=== PATIENT | male | born 1950 | race Caucasian/White ===

== ENCOUNTER 2017-01-18 04:19 | Inpatient (IN) | payer MEDICARE, OTHER ==
[~2017-01-18] VITALS: Ht 170.2 cm; Wt 84.0 kg
[~2017-01-18 04:19] MED LIST: ASPI81TA3 PO; ATOR80TA75 PO; CARV6.2579 PO; CLOP75TA27 PO; LANT3I SC; OLME20TA20 PO
[2017-01-18] MEDS ORDERED: morphine 4 MG/ML VIAL IV STA (04:29)
[2017-01-18] MEDS ORDERED: ONDANSETRON 4 MG INJ IV STA (04:29)
--- NOTE | 2017-01-18 04:29 | ERD ---
ER Documentation Chief Complaint Chief Complaint RUQ AP x 4 hours, no vomiting, some constipation, +belching HPI The patient is a 66-year-old male, presenting to the ER because of abdominal pain for the last 4 hours, has similar symptoms previously, denies fever, chills , vomiting, dysuria, diarrhea. There is no aggravating or relieving factor, denies diarrhea, constipation Past medical history: CAD, chronic kidney disease Surgical history: Stent PCI, bladder surgery due to cancer ROS All systems reviewed and are negative except as per history of present illness. Medications Home Meds Active Scripts Levofloxacin* (Levaquin*) 500 Mg Tablet, 500 MG PO DAILY for 7 Days, TAB Prov:PAULETTE ABDI MD 01/18/17 Hydrocodone/Acetaminophen ([place] 5-325 Tablet) 1 Each Tablet, 1 TAB PO Q6H Y for PAIN, #7 TAB Prov:PAULETTE ABDI MD 01/18/17 Levofloxacin* (Levaquin*) 750 Mg Tablet, 750 MG PO DAILY for 7 Days, TAB Prov:PAULETTE ABDI MD 01/18/17 Carvedilol* (Carvedilol*) 6.25 Mg Tablet, 6.25 MG PO BID for 30 Days, TAB 2 Refills Prov:NEYMAR CARNEY. 08/19/15 Atorvastatin* (Atorvastatin*) 80 Mg Tablet, 80 MG PO HS for 30 Days, TAB 2 Refills Prov:NEYMAR CARNEY. 08/19/15 Aspirin (Aspirin) 81 Mg Chew, 81 MG PO DAILY for 30 Days, TAB 2 Refills Prov:NEYMAR CARNEY 08/19/15 Insulin Glargine* (Lantus*) 100 Unit/Ml Soln, 15 UNIT SC HS for 2 Days use for the next 2 days till you can restart your home metformin Prov:NEYMAR CARNEY 08/19/15 Clopidogrel Bisulfate (Clopidogrel) 75 Mg Tablet, 75 MG PO DAILY for 30 Days, TAB 2 Refills Prov:NEYMAR CARNEY 08/19/15 Reported Medications Olmesartan Medoxomil (Benicar) 20 Mg Tablet, 20 MG PO DAILY, #30 TAB 08/17/15 Allergies Allergies: Coded Allergies: No Known Allergy (Unverified , 08/17/15) PMhx/Soc History of Surgery: Yes Anesthesia Reaction: No Hx Neurological Disorder: No Hx Respiratory Disorders: No Hx Cardiac Disorders: No Hx Psychiatric Problems: No Hx Miscellaneous Medical Probl: Yes Hx Alcohol Use: No Hx Substance Use: No Hx Tobacco Use: Yes Physical Exam Vitals Vital Signs Date Time Temp Pulse Resp B/P Pulse Ox O2 Delivery O2 Flow Rate FiO2 01/18/17 05:35 77 18 160/93 95 01/18/17 04:34 73 18 179/91 98 Room Air 01/18/17 04:25 98.0 76 20 169/85 99 Physical Exam Const: No acute distress. Head: Atraumatic. Eyes: Normal Conjunctiva. ENT: Normal External Ears, Nose and Mouth. Neck: Full range of motion. No meningismus. Resp: Clear to auscultation bilaterally. Cardio: Regular rate and rhythm. Abd: Soft, non distended, normal bowel sounds, neck and diffuse abdominal tenderness, more tenderness of the right upper quadrant, no rigidity, rebound, CVA tenderness Skin: No petechiae or rashes. Back: No midline or flank tenderness. Ext: No cyanosis, or edema. Neur: Awake and alert. No focal deficit Psych: Normal Mood and Affect. Result Diagram: 01/18/17 0515 01/18/17 0515 Results 24 hrs Laboratory Tests Test 01/18/17 05:15 01/18/17 05:28 White Blood Count 9.810^3/ul Red Blood Count 5.1510^6/ul Hemoglobin 14.8g/dl Hematocrit 43.3% Mean Corpuscular Volume 84.1fl Mean Corpuscular Hemoglobin 28.7pg Mean Corpuscular Hemoglobin Concent 34.2g/dl Red Cell Distribution Width 13.6% Platelet Count 07712^3/UL Mean Platelet Volume 10.7fl Neutrophils % 54.2% Lymphocytes % 33.6% Monocytes % 9.9% Eosinophils % 1.2% Basophils % 0.7% Nucleated Red Blood Cells % 0.0/100WBC Neutrophils # 5.310^3/ul Lymphocytes # 3.310^3/ul Monocytes # 1.010^3/ul Eosinophils # 0.110^3/ul Basophils # 0.110^3/ul Nucleated Red Blood Cells # 0.010^3/ul Sodium Level 141mmol/L Potassium Level 4.0mmol/L Chloride Level 105mmol/L Carbon Dioxide Level 23mmol/L Anion Gap 17 Blood Urea Nitrogen 30mg/dl Creatinine 1.42mg/dl Glucose Level 195mg/dl Calcium Level 10.0mg/dl Total Bilirubin 0.5mg/dl Direct Bilirubin 0.00mg/dl Indirect Bilirubin 0.5mg/dl Aspartate Amino Transf (AST/SGOT) 20IU/L Alanine Aminotransferase (ALT/SGPT) 37IU/L Alkaline Phosphatase 56IU/L Total Protein 8.4g/dl Albumin 4.6g/dl Globulin 3.80g/dl Albumin/Globulin Ratio 1.21 Lipase 243U/L Bedside Urine pH (LAB) 7.0 Bedside Urine Protein (LAB) 2+ Bedside Urine Glucose (UA) Negative Bedside Urine Ketones (LAB) Negative Bedside Urine Blood 1+ Bedside Urine Nitrite (LAB) Positive Bedside Urine Leukocyte Esterase (L 1+ Current Medications Medications (Trade) Dose Ordered Sig/Jules Route PRN Reason Start Time Stop Time Status Last Admin Dose Admin Morphine Sulfate (morphine) 4 mg ONCE STAT IV 01/18/17 04:29 01/18/17 04:31 DC 01/18/17 05:13 Ondansetron HCl (Zofran Inj) 4 mg ONCE STAT IV 01/18/17 04:29 01/18/17 04:31 DC 01/18/17 05:13 Levofloxacin 750 mg 750 mg ONCE ONCE PO 01/18/17 06:30 01/18/17 06:30 DC 01/18/17 06:18 Sodium Chloride 500 ml @ 500 mls/hr Q1H ONCE IV 01/18/17 06:30 01/18/17 07:29 01/18/17 06:26 Piperacillin Sod/ Tazobactam Sod (Zosyn 2.25gm/ 50ml (Pmx)) 50 ml @ 100 mls/hr ONCE ONCE IVPB 01/18/17 06:30 01/18/17 06:59 Procedures/[place] [id number] Radiology Main Line: [phone] DIAGNOSTIC IMAGING REPORT Patient: JOHANN NUNO : 1950 Age: 66 Sex: M MR #: [id number] DOS: 01/18/17 0429 Ordering MD: PAULETTE ABDI MD Location: E/R Room/Bed: PROCEDURE: Abdominal ultrasound CLINICAL INDICATION: Abdominal pain. COMPARISON: CT abdomen and pelvis 01/18/2017. TECHNIQUE: Multiple transverse and longitudinal nam-scale images of the abdomen were obtained, supplemented with color, power, and spectral Doppler imaging when appropriate. FINDINGS: Liver Length: 19.9 cm. Parenchyma: Heterogeneous. No suspicious mass or cyst. Portal vein: Patent with normal hepatopetal flow. Biliary tree Gallbladder: Distended containing a 1.6 gallstone located in the neck . The gallbladder wall is thickened measuring 5.8 mm with pericholecystic fluid. Positive King's sign was elicited by the supervisor detasseling crew. Intrahepatic bile duct: No intrahepatic biliary ductal dilatation. Common bile duct: 5.5 mm. Pancreas: 1.5 x 0.9 cm round hypoechoic area near the pancreatic body not confirmed on CT examination of reference which was performed without intravenous contrast. Right kidney Length: 11.1 cm. Parenchyma: No evidence of obstructive uropathy. Multiple right renal cysts the largest measuring 2.9 x 1.2 cm. IMPRESSION: 1. Distended gallbladder with a 1.6 cm gallstone located in the gallbladder neck. There is gallbladder wall thickening and pericholecystic fluid. A positive King's sign elicited by the supervisor detasseling crew. These findings are consistent with cholecystitis. 2. Hepatomegaly with heterogeneous echotexture favored to represent hepatic steatosis. 3. Rounded avascular hypoechoic structure adjacent to the body of the pancreas measuring 1.5 x 0.9 cm. Findings are not confirmed on CT examination of reference which was performed without intravenous contrast. Non emergent follow- up CT or MRI examination with special attention to the pancreas recommended. 4. Multiple right renal cysts the largest measuring 2.9 x 1.2 cm. Call results: Results of this examination called by this radiologist to Dr. Abdi in the emergency department at 06:17 a.m on 01/18/2017. RPTAT: HRSR Physician Agustin Date Time Electronically viewed and signed by Physician Agustin on 01/18/2017 06 :20 RR/ CC: PUALETTE ABDI MD [place] [id number] Radiology Main Line: [phone] DIAGNOSTIC IMAGING REPORT Patient: JOHANN NUNO : 1950 Age: 66 Sex: M MR #: [id number] DOS: 01/18/17 0429 Ordering MD: PAULETTE ABDI MD Location: E/R Room/Bed: PROCEDURE: CT of the abdomen and pelvis without contrast CLINICAL INDICATION: Abdominal pain TECHNIQUE: Spiral CT images through the abdomen and pelvis without the use of contrast. The administered radiation dose is CTDI 16.1 mGy and DLP 988.96 mGy* cm. Coronal and sagittal reformatted images were submitted. One or more of the following dose reduction techniques were used: automated exposure control, adjustment of the mA and/or kV according to patient size, or use of iterative reconstruction technique. DICOM images are available. COMPARISON: None FINDINGS: Lack of oral and intravenous contrast somewhat limits evaluation. The lung bases are clear. No pleural effusion is seen. The liver is enlarged and normal in attenuation. The gallbladder is distended with a 1.9 cm gallstone in the neck. Gallbladder wall is thickened. No inflammatory changes are seen. There is no biliary ductal dilatation. The spleen , adrenal glands and pancreas are normal in appearance. The kidneys are normal in size. There are bilateral renal cysts, the largest measuring 4.6 cm in the lower pole of the left kidney. Small hyperdense lesions are seen on image 63 in the right kidney and 82-83 in the left kidney. There is a 6 mm calculus in the lower pole of the left kidney. No hydronephrosis is seen. The aorta is calcified with mild focal bulges in the wall of the infrarenal aorta. No evidence of aneurysm. There is evidence of prior small bowel resection with focal dilatation at the anastomosis. There is no evidence for bowel obstruction, free air, or abscess. The appendix is normal in appearance. The colon is fecal filled. Fecal like material is seen in the ileum. There is colonic diverticulosis, thickening of the distal descending, sigmoid colon with mild pericolonic stranding. No adenopathy or ascites is seen. The bladder is irregular in contour with mild wall thickening. There is evidence of prior small bowel resection with focal dilatation at the anastomoses.. Question prior prostatectomy. There is a fat containing right inguinal hernia. The pars defect is noted at the L5-S1 level on the left. Bilateral sacroiliac joints are narrowed.. IMPRESSION: Cholelithiasis and gallbladder wall thickening suggesting cholecystitis. Correlate clinically. Colonic diverticulosis and possible mild diverticulitis. Fecal filled colon. Nonobstructing left renal calculus. Bilateral renal simple and complex renal cysts. Irregular bladder contour and bladder wall thickening. Fat containing right inguinal hernia. Aortic atherosclerosis. RPTAT: HCNS Physician Dave Date Time Electronically viewed and signed by Physician Dave on 01/18/2017 06: 17 CS/ CC: PAULETTE ABDI MD MEDICAL MAKING DECISION: the patient is a 66-year-old male, presenting with acute cholecystitis, acute cystitis. He was treated with 1 L normal saline, Zosyn IV, morphine 4 mg IV for pain, Zofran 4 mg IV for nausea with good response The differential diagnoses considered include but are not limited to cholelithiasis, cholecystitis, cystitis, pancreatitis, hepatitis, gastritis, peptic ulcer disease, gastric ulcer, appendicitis, diverticulitis, cholangitis, choledocholithiasis, partial small bowel obstruction. Departure Diagnosis: Primary Impression: Cholecystitis Additional Impression: UTI (urinary tract infection) Condition: Stable Comments I discussed the findings with the patient. I discussed the patient with the hospitalist Dr. Laura at 6 AM who was made aware of the lab, the treatment, the patient condition. The patient is admitted to [facility] Disclaimer: Inadvertent spelling and grammatical errors are likely due to EHR/ dictation software use and do not reflect on the overall quality of patient care. Also, please note that the electronic time recorded on this note does not necessarily reflect the actual time of the patient encounter. PAULETTE ABDI MD Jan 18, 2017 04:29
[2017-01-18 05:28] LABS: URINE BLOOD (Dip) POC 1+ (NEGATIVE)
[2017-01-18 05:31] LABS: BASOPHIL # 0.1 10^3/ul (0.0-0.1); BASOPHILS % 0.7 % (0.0-2.0); EOSINOPHILS # 0.1 10^3/ul (0.0-0.5); EOSINOPHILS % 1.2 % (0.0-7.0); HEMATOCRIT 43.3 % (42.0-52.0); HEMOGLOBIN 14.8 g/dl (14.0-18.0); LYMPHOCYTES # 3.3 10^3/ul (0.8-2.9); LYMPHOCYTES % 33.6 % (15.0-51.0); MEAN CORPUSCULAR HEMOGLOBIN 28.7 pg (29.0-33.0); MEAN CORPUSCULAR HGB CONC 34.2 g/dl (32.0-37.0); MEAN CORPUSCULAR VOLUME 84.1 fl (82.0-101.0); MEAN PLATELET VOLUME 10.7 fl (7.4-10.4); MONOCYTES % 9.9 % (0.0-11.0); NEUTROPHIL # 5.3 10^3/ul (1.6-7.5); NEUTROPHILS % 54.2 % (39.0-77.0); PLATELET COUNT 189 10^3/UL (140-415); RED BLOOD COUNT 5.15 10^6/ul (4.70-6.10); RED CELL DISTRIBUTION WIDTH 13.6 % (11.5-14.5); WHITE BLOOD COUNT 9.8 10^3/ul (4.8-10.8)
[2017-01-18 05:56] LABS: ALBUMIN 4.6 g/dl (3.3-4.9); ALBUMIN/GLOBULIN RATIO 1.21; BILIRUBIN,INDIRECT 0.5 mg/dl (0-1.1); BILIRUBIN,TOTAL 0.5 mg/dl (0.2-1.3); CREATININE 1.42 mg/dl (0.61-1.24); TOTAL PROTEIN 8.4 g/dl (6.1-8.1)
[2017-01-18] MEDS ORDERED: HYDR-906 PO (06:14)
[2017-01-18] MEDS ORDERED: LEVO750T25 PO (06:14)
[2017-01-18] MEDS ORDERED: LEVO500T72 PO (06:18)
--- NOTE | 2017-01-18 06:18 | RADRPT ---
PROCEDURE: CT of the abdomen and pelvis without contrast CLINICAL INDICATION: Abdominal pain TECHNIQUE: Spiral CT images through the abdomen and pelvis without the use of contrast. The admin istered radiation dose is CTDI 16.1 mGy and DLP 988.96 mGy*cm. Coronal and sagittal reformatted kin ges were submitted. One or more of the following dose reduction techniques were used: automated exp osure control, adjustment of the mA and/or kV according to patient size, or use of iterative reconst ruction technique. DICOM images are available. COMPARISON: None FINDINGS: Lack of oral and intravenous contrast somewhat limits evaluation. The lung bases are clear. No pl eural effusion is seen. The liver is enlarged and normal in attenuation. The gallbladder is distended with a 1.9 cm gallston e in the neck. Gallbladder wall is thickened. No inflammatory changes are seen. There is no biliary ductal dilatation. The spleen, adrenal glands and pancreas are normal in appearance. The kidneys a re normal in size. There are bilateral renal cysts, the largest measuring 4.6 cm in the lower pole o f the left kidney. Small hyperdense lesions are seen on image 63 in the right kidney and 82-83 in th e left kidney. There is a 6 mm calculus in the lower pole of the left kidney. No hydronephrosis is seen. The aorta is calcified with mild focal bulges in the wall of the infrarenal aorta. No evidence of aneurysm. There is evidence of prior small bowel resection with focal dilatation at the anastomosis. There is no evidence for bowel obstruction, free air, or abscess. The appendix is normal in appearance. The colon is fecal filled. Fecal like material is seen in the ileum. There is colonic diverticulosis , thickening of the distal descending, sigmoid colon with mild pericolonic stranding. No adenopathy or ascites is seen. The bladder is irregular in contour with mild wall thickening. There is evidence of prior small bowel resection with focal dilatation at the anastomoses.. Question prior prostatect glen[place]. There is a fat containing right inguinal hernia. The pars defect is noted at the L5-S1 level on the left. Bilateral sacroiliac joints are narrowed.. IMPRESSION: Cholelithiasis and gallbladder wall thickening suggesting cholecystitis. Correlate clinically. Colonic diverticulosis and possible mild diverticulitis. Fecal filled colon. Nonobstructing left renal calculus. Bilateral renal simple and complex renal cysts. Irregular bladder contour and bladder wall thickening. Fat containing right inguinal hernia. Aortic atherosclerosis. RPTAT: HCNS Kate Russell Physician Date Time Electronically viewed and signed by Kate Russell Physician on 01/18/2017 06:17 CS/
--- NOTE | 2017-01-18 06:20 | RADRPT ---
PROCEDURE: Abdominal ultrasound CLINICAL INDICATION: Abdominal pain. COMPARISON: CT abdomen and pelvis 01/18/2017. TECHNIQUE: Multiple transverse and longitudinal nam-scale images of the abdomen were obtained, supp lemented with color, power, and spectral Doppler imaging when appropriate. FINDINGS: Liver Length: 19.9 cm. Parenchyma: Heterogeneous. No suspicious mass or cyst. Portal vein: Patent with normal hepatopetal flow. Biliary tree Gallbladder: Distended containing a 1.6 gallstone located in the neck . The gallbladder wall is thic kened measuring 5.8 mm with pericholecystic fluid. Positive King's sign was elicited by the sonogr apher. Intrahepatic bile duct: No intrahepatic biliary ductal dilatation. Common bile duct: 5.5 mm. Pancreas: 1.5 x 0.9 cm round hypoechoic area near the pancreatic body not confirmed on CT examinati on of reference which was performed without intravenous contrast. Right kidney Length: 11.1 cm. Parenchyma: No evidence of obstructive uropathy. Multiple right renal cysts the largest measuring 2. 9 x 1.2 cm. IMPRESSION: 1. Distended gallbladder with a 1.6 cm gallstone located in the gallbladder neck. There is gallblad lucien wall thickening and pericholecystic fluid. A positive King's sign elicited by the verification engineer. These findings are consistent with cholecystitis. 2. Hepatomegaly with heterogeneous echotexture favored to represent hepatic steatosis. 3. Rounded avascular hypoechoic structure adjacent to the body of the pancreas measuring 1.5 x 0.9 cm. Findings are not confirmed on CT examination of reference which was performed without intravenou s contrast. Non emergent follow-up CT or MRI examination with special attention to the pancreas frances mmended. 4. Multiple right renal cysts the largest measuring 2.9 x 1.2 cm. Call results: Results of this examination called by this radiologist to Dr. Spicer in the emergency d epartment at 06:17 a.m on 01/18/2017. RPTAT: HRSR Physician Agustin Date Time Electronically viewed and signed by Physician Agustin on 01/18/2017 06:20 RR/
[2017-01-18] MEDS ORDERED: LEVOFLOXACIN 750 MG TABLET PO ONE (06:30)
[2017-01-18] MEDS ORDERED: SOD CHLORIDE 0.9% 500 ML IV ONE (06:30)
[2017-01-18] MEDS ORDERED: PIPER-TAZO 2.25 GM (PMX) 50 ML IVPB ONE (06:30)
[2017-01-18] MEDS ORDERED: ONDANSETRON 4 MG INJ IV PRN (07:00)
[2017-01-18] MEDS ORDERED: DEXTROSE 50% 50 ML SYRINGE IV PRN ×2 (07:00)
[2017-01-18] MEDS ORDERED: GLUCAGON 1 MG INJ IM PRN (07:00)
[2017-01-18] MEDS ORDERED: GLUCOSE GEL 15 GRAM TUBE PO PRN ×2 (07:00)
[2017-01-18] MEDS ORDERED: ACETAMINOPHEN 325 MG TAB PO PRN (07:00)
[2017-01-18] MEDS ORDERED: GLUCOSE GEL 15 GRAM TUBE BUCCAL PRN (07:00)
[2017-01-18] MEDS ORDERED: HYDROmorphONE 0.5 MG/0.5 ML SYG IV PRN (07:00)
[2017-01-18] MEDS ORDERED: NACL 0.9% 3 ML SYG IV SCH (07:00)
--- NOTE | 2017-01-18 07:12 | EN ---
Date/Time of Note Date/Time of Note DATE: 01/18/17 TIME: 07:11 ER Progress Note EKG interpretation This patient was signed out to me by Dr. Spicer at 6 AM on January 18, 2017. Briefly, this is a 66-year-old male who is presenting with cholecystitis. EKG read by me: Rate/Rhythm: Regular rate and rhythm at a rate of 76 bpm Intervals: Normal [place]: Normal Impression: No evidence of ischemia or arrhythmia BRITTANY NEAL MD Jan 18, 2017 07:12
[2017-01-18] MEDS: SOD CHLORIDE 0.9% 1,000 ML IV SCH ×2 (07:39→17:28)
--- NOTE | 2017-01-18 07:55 | RADRPT ---
PROCEDURE: XR Chest. CLINICAL INDICATION: Preoperative TECHNIQUE: Single frontal view of the chest was obtained. COMPARISON: CR CHEST 08/17/2015 FINDINGS: The heart is within normal limits. The thoracic aorta is calcified. The lungs are clear. There is no pleural effusion or pneumothorax. RPTAT: AA IMPRESSION: No acute disease. Calcified aorta consistent with atherosclerotic disease. .Gennaro Paredes MD, MD Date Time Electronically viewed and signed by .Gennaro Paredes MD, on 01/18/2017 07:54 .S/
[2017-01-18] MEDS ORDERED: INSULIN ASPART [NOVOLOG] 3 ML PEN SC SCH (09:00)
[2017-01-18 09:29] VITALS: BP 152/78; RESP 16
[2017-01-18] MEDS ORDERED: HYDROCODONE/APAP (5/325) TAB PO PRN (09:30)
[2017-01-18] MEDS: CIPROFLOXACIN 400MG/D5W 200 ML IVPB SCH ×2 (09:38→20:53)
[2017-01-18] MEDS: ASPIRIN 81 MG TAB PO SCH (09:52)
--- NOTE | 2017-01-18 09:57 | HP ---
Date/Time of Note Date/Time of Note DATE: 01/18/17 TIME: 09:38 Assessment/Plan VTE Prophylaxis VTE Prophylaxis Intervention: SCD's Lines/Catheters IV Catheter Type (from Nrs): Peripheral IV Assessment/Plan Assessment/Plan 1. Acute cholecystitis - Patient found to have acute primo on US gallbladder and CT scan of abdomen - After discussion, patient has declined surgery at this time. Surgery was called from the ED and I spoke with surgeon about patients decision and states would be happy to see him as an outpatient - Will treat with IV antibiotics, Cipro and Flagyl, and change to PO tomorrow if remains stable - Patient is afebrile with nl WBC and does not appear septic. I feel as if patient could be followed as an outpatient for elective cholecystectomy. Patient in agreement and would like 1 day of antibiotics via IV - Pain control - Will try soft diet and advance as tolerated 2. UTI - UA + leuk esterase - Will treat with Cipro - Urine culture ordered 3. Early diverticulitis - Patient denies any symptoms - Continue to monitor - on antibiotics 4. SUMAN vs SUMAN on CKD - Cr 1.42, unsure baseline but 2 years ago had normal renal function - Will continue on IVF for 24 hour and recheck renal function in am - May be secondary to infection vs dehydration - renal cysts present bilaterally on CT scan 5. CAD - continue on Aspirin, BB, and statin - stable 6. HTN - hold Benicar due SUMAN 7. h/o Bladder CA - per patient, he has been cancer free and finished chemotherapy 8. ?pancreatic abnormality - patient has appointment at [facility] on friday for MRI to further evaluate 9. Diet - soft diet and advance as tolerated 10. Code - full 11. DVT - ambulation/SCD 12. GI - not indicated 13. Disposition - Will admit to med/surg and if remains stable with change IV antibiotics to PO and d/c in am HPI/ROS Admit Date/Time Admit Date/Time Jan 18, 2017 at 06:26 Hx of Present Illness 66 yo M with PMH CAD s/p stent, CAD, bladder CA 2010, and CKD presented to ED c/ o RUQ pain that started at 9pm. Patient states he was experiencing sharp pain, moderate in severity, nonradiating, nothing made it better, worse with movement. Patient admits to associated nausea but no vomiting. Denies any fevers, chills, LOC, dizziness, chest pain, shortness of breath, constipation, or diarrhea. Surgery was consulted by ED but patient has refused surgery at this time and would like to pursue as an outpatient. Patient has history of bladder cancer and had reconstruction of bladder. States he was told he will always have mucous present on urinalysis but denies any dysuria, blood, or discharge. Patient was told he has some abnormality in his pancreas and scheduled for appointment at [facility] on 01/20/11 for MRI. Patient plans to pursue treatment for acute cholecystitis as outpatient. Patient also states he used to be on medications for glucose control but was stopped due to abnormality found in pancreas. No longer taking insulin as well. ROS All 12 systems reviewed and pertinent positives as per HPI. All others reviewed and negative. Constitutional: nausea, No chills, No diaphoresis, No disoriented, No fatigue, No weight change Eyes: no complaints ENT: no complaints, No discharge, No dysphagia Respiratory: no complaints, No cough, No shortness of breath, No sputum, No wheezing Cardiovascular: No chest pain, No edema, No lightheadedness, No palpitations Gastrointestinal: nausea, pain, No constipation, No diarrhea, No vomiting Genitourinary: No discharge, No dysuria, No flank pain Musculoskeletal: No back pain, No restricted range of motion, No swelling Skin: No bruising, No erythema, No pruritis, No rash Neurologic: no complaints Endocrine: no complaints Lymphatic: no complaints Psychological: nl mood/affect Immunologic: no complaints PMH/Family/Social Past Medical History Medical History: coronary artery disease, diabetes, renal disease, other ( bladder cancer 2010) Past Surgical History Past Surgical Hx: other (PCI, bladder surgery, hernia repair) Family History Significant Family History: no pertinent family hx Social History Alcohol Use: none Smoking Status: Former smoker Drug Use: none Exam/Review of Systems Vital Signs Vitals Vital Signs Date Time Temp Pulse Resp B/P Pulse Ox O2 Delivery O2 Flow Rate FiO2 01/18/17 07:47 74 20 134/55 96 Room Air 01/18/17 04:25 98.0 Exam Constitutional: alert, oriented, well developed, No distress Psych: nl mood/affect Head: atraumatic, normocephalic Eyes: EOMI, PERRL, nl sclera ENMT: mucosa pink and moist Neck: non-tender, supple Respiratory: clear to auscultation, No crackles/rales, No wheezing Cardiovascular: regular rate and rhythm, No diastolic murmur, No edema, No rub, No systolic murmur Gastrointestinal: bowel sounds, soft, tender (RUQ, +nat with deep palpation ), No ascites, No distended, No rebound or guarding Genitourinary - Male: No CVA tenderness, No discharge Musculoskeletal: nl extremities to inspection, No muscle weakness Extremities: normal pulses, No clubbing, No cyanosis, No edema Neurological: DANCE CRITIC II-XII intact, nl mental status, nl speech Skin: nl turgor Lymph: nl lymph nodes Labs Result Diagram: 01/18/1751401/18/17514 Medications Medications Home medications reviewed with patient Current Medications Sodium Chloride (NS) 1,000 ml @ 100 mls/hr Q10H IV Last administered on t 07:39; Admin Dose 100 MLS/HR; Start 01/18/17 at 06:31 Ondansetron HCl (Zofran Inj) 4 mg Q6H PRN IV NAUSEA AND/OR VOMITING; Start 01/18/17 at 07:00 Acetaminophen (Tylenol Tab) 650 mg Q6H PRN PO PAIN LEVEL 1-3 OR FEVER; Start 01/18/17 at 07:00 Hydromorphone HCl (Dilaudid) 0.5 mg Q4H PRN IV SEVERE PAIN LEVEL 7-10; Start 01/18/17 at 07:00 Diagnostic Test (Pha) (Accu-Chek) 1 ea 02 XX ; Start 01/19/17 at 02:00 Insulin Aspart (Novolog Insulin Pen) NOVOLOG *MILD* ALGORI... Q4 SC ; Start 01/18/17 at 09:00 Miscellaneous Information 1 ea NOTE XX ; Start 01/18/17 at 07:00 Glucose (Glutose) 15 gm Q15M PRN PO DECREASED GLUCOSE; Start 01/18/17 at 07:00 Glucose (Glutose) 22.5 gm Q15M PRN PO DECREASED GLUCOSE; Start 01/18/17 at 07: 00 Dextrose (D50w Syringe) 25 ml Q15M PRN IV DECREASED GLUCOSE; Start 01/18/17 at 07:00 Dextrose (D50w Syringe) 50 ml Q15M PRN IV DECREASED GLUCOSE; Start 01/18/17 at 07:00 Glucagon (Glucagen) 1 mg Q15M PRN IM DECREASED GLUCOSE; Start 01/18/17 at 07:00 Glucose 15 gm 15 gm Q15M PRN BUCCAL DECREASED GLUCOSE; Start 01/18/17 at 07:00 Ciprofloxacin/ Dextrose 200 ml @ 200 mls/hr Q12 IVPB ; Start 01/18/17 at 09:00 Metronidazole (Flagyl 500 Mg (Pmx)) 100 ml @ 100 mls/hr Q6 IVPB ; Start at 09:00 Procedures Procedures PROCEDURE: Abdominal ultrasound CLINICAL INDICATION: Abdominal pain. COMPARISON: CT abdomen and pelvis 01/18/2017. TECHNIQUE: Multiple transverse and longitudinal nam-scale images of the abdomen were obtained, supplemented with color, power, and spectral Doppler imaging when appropriate. FINDINGS: Liver Length: 19.9 cm. Parenchyma: Heterogeneous. No suspicious mass or cyst. Portal vein: Patent with normal hepatopetal flow. Biliary tree Gallbladder: Distended containing a 1.6 gallstone located in the neck . The gallbladder wall is thickened measuring 5.8 mm with pericholecystic fluid. Positive King's sign was elicited by the vice president lending. Intrahepatic bile duct: No intrahepatic biliary ductal dilatation. Common bile duct: 5.5 mm. Pancreas: 1.5 x 0.9 cm round hypoechoic area near the pancreatic body not confirmed on CT examination of reference which was performed without intravenous contrast. Right kidney Length: 11.1 cm. Parenchyma: No evidence of obstructive uropathy. Multiple right renal cysts the largest measuring 2.9 x 1.2 cm. IMPRESSION: 1. Distended gallbladder with a 1.6 cm gallstone located in the gallbladder neck. There is gallbladder wall thickening and pericholecystic fluid. A positive King's sign elicited by the vice president lending. These findings are consistent with cholecystitis. 2. Hepatomegaly with heterogeneous echotexture favored to represent hepatic steatosis. 3. Rounded avascular hypoechoic structure adjacent to the body of the pancreas measuring 1.5 x 0.9 cm. Findings are not confirmed on CT examination of reference which was performed without intravenous contrast. Non emergent follow- up CT or MRI examination with special attention to the pancreas recommended. 4. Multiple right renal cysts the largest measuring 2.9 x 1.2 cm. PROCEDURE: CT of the abdomen and pelvis without contrast CLINICAL INDICATION: Abdominal pain TECHNIQUE: Spiral CT images through the abdomen and pelvis without the use of contrast. The administered radiation dose is CTDI 16.1 mGy and DLP 988.96 mGy* cm. Coronal and sagittal reformatted images were submitted. One or more of the following dose reduction techniques were used: automated exposure control, adjustment of the mA and/or kV according to patient size, or use of iterative reconstruction technique. DICOM images are available. COMPARISON: None FINDINGS: Lack of oral and intravenous contrast somewhat limits evaluation. The lung bases are clear. No pleural effusion is seen. The liver is enlarged and normal in attenuation. The gallbladder is distended with a 1.9 cm gallstone in the neck. Gallbladder wall is thickened. No inflammatory changes are seen. There is no biliary ductal dilatation. The spleen , adrenal glands and pancreas are normal in appearance. The kidneys are normal in size. There are bilateral renal cysts, the largest measuring 4.6 cm in the lower pole of the left kidney. Small hyperdense lesions are seen on image 63 in the right kidney and 82-83 in the left kidney. There is a 6 mm calculus in the lower pole of the left kidney. No hydronephrosis is seen. The aorta is calcified with mild focal bulges in the wall of the infrarenal aorta. No evidence of aneurysm. There is evidence of prior small bowel resection with focal dilatation at the anastomosis. There is no evidence for bowel obstruction, free air, or abscess. The appendix is normal in appearance. The colon is fecal filled. Fecal like material is seen in the ileum. There is colonic diverticulosis, thickening of the distal descending, sigmoid colon with mild pericolonic stranding. No adenopathy or ascites is seen. The bladder is irregular in contour with mild wall thickening. There is evidence of prior small bowel resection with focal dilatation at the anastomoses.. Question prior prostatectomy. There is a fat containing right inguinal hernia. The pars defect is noted at the L5-S1 level on the left. Bilateral sacroiliac joints are narrowed.. IMPRESSION: Cholelithiasis and gallbladder wall thickening suggesting cholecystitis. Correlate clinically. Colonic diverticulosis and possible mild diverticulitis. Fecal filled colon. Nonobstructing left renal calculus. Bilateral renal simple and complex renal cysts. Irregular bladder contour and bladder wall thickening. Fat containing right inguinal hernia. Aortic atherosclerosis. ATA FELIX MD Jan 18, 2017 09:57
[2017-01-18] MEDS: metroNIDAZOLE 500 MG/NS (PMX) 100 ML IVPB SCH ×4 (10:44→23:24)
[2017-01-18 14:22] VITALS: BP 121/67; RESP 16
[2017-01-18] MEDS ORDERED: GLIM4TAB PO (17:00)
[2017-01-18 17:29] VITALS: BP 153/79; PULSE 71
[2017-01-18 20:15] VITALS: BP 151/76; PULSE 74; RESP 18
[2017-01-18] MEDS ORDERED: ATORVASTATIN 80 MG TAB PO SCH (21:00)
[2017-01-19] MEDS ORDERED: IBUPROFEN 600 MG TAB PO ONE (01:00)
[2017-01-19 02:00] VITALS: BP 150/72; PULSE 74; RESP 18
[2017-01-19] MEDS ORDERED: ACCU-CHEK XX SCH (02:00)
[2017-01-19] MEDS: SOD CHLORIDE 0.9% 1,000 ML IV SCH ×2 (02:31→08:14)
[2017-01-19 05:33] LABS: BASOPHIL # 0.1 10^3/ul (0.0-0.1); BASOPHILS % 0.8 % (0.0-2.0); EOSINOPHILS # 0.1 10^3/ul (0.0-0.5); EOSINOPHILS % 1.3 % (0.0-7.0); HEMATOCRIT 37.4 % (42.0-52.0); HEMOGLOBIN 12.7 g/dl (14.0-18.0); LYMPHOCYTES # 2.4 10^3/ul (0.8-2.9); LYMPHOCYTES % 39.9 % (15.0-51.0); MEAN CORPUSCULAR HEMOGLOBIN 28.9 pg (29.0-33.0); MEAN CORPUSCULAR VOLUME 85.2 fl (82.0-101.0); MONOCYTE # 0.7 10^3/ul (0.3-0.9); MONOCYTES % 10.8 % (0.0-11.0); NEUTROPHIL # 2.9 10^3/ul (1.6-7.5); NEUTROPHILS % 46.9 % (39.0-77.0); POSITIVE DIFF @See below; RED BLOOD COUNT 4.39 10^6/ul (4.70-6.10); RED CELL DISTRIBUTION WIDTH 13.7 % (11.5-14.5); WHITE BLOOD COUNT 6.1 10^3/ul (4.8-10.8)
[2017-01-19] MEDS: metroNIDAZOLE 500 MG/NS (PMX) 100 ML IVPB SCH (05:36)
[2017-01-19 05:43] LABS: PLATELET COUNT 138 10^3/UL (140-415)
[2017-01-19 05:50] LABS: ALBUMIN 3.6 g/dl (3.3-4.9); ALBUMIN/GLOBULIN RATIO 1.12; BILIRUBIN,INDIRECT 0.2 mg/dl (0-1.1); BILIRUBIN,TOTAL 0.2 mg/dl (0.2-1.3); CALCIUM 8.7 mg/dl (8.4-10.2); CHOL/HDL RATIO 5.5 RATIO; CREATININE 1.48 mg/dl (0.61-1.24); POTASSIUM 3.9 mmol/L (3.5-5.1); TOTAL PROTEIN 6.8 g/dl (6.1-8.1)
[2017-01-19 06:47] LABS: THYROID STIMULATING HORMONE 0.844 MIU/L (0.465-4.680)
[2017-01-19 07:50] VITALS: BP 129/68; RESP 16
[2017-01-19] MEDS: ASPIRIN 81 MG TAB PO SCH (08:08)
[2017-01-19] MEDS: CIPROFLOXACIN 400MG/D5W 200 ML IVPB SCH (08:12)
[2017-01-19 08:15] VITALS: Ht 170.2 cm; Wt 84.0 kg
[2017-01-19] MEDS ORDERED: CIPR500T4 PO (08:15)
[2017-01-19] MEDS ORDERED: METR500T PO (08:16)
[2017-01-19] MEDS ORDERED: HYDR-902 PO (08:27)
--- NOTE | 2017-01-19 08:34 | PDOCDIS ---
Discharge Instructions DIAGNOSIS Discharge Diagnosis 1. Acute cholecystitis 2. Hypertriglyceridemia 3. Diabetes Mellitus, A1c 8.0 4. h/o Bladder CA 5. Urinary tract infection 6. Early diverticulitis 7. Acute renal insufficiency CONDITION Patient Condition: Fair HOME CARE INSTRUCTIONS: Diet Instructions: Low Fat /Cholesterol ACTIVITY: Activity Restrictions: No Restrictions FOLLOW UP/APPOINTMENTS Follow-up Plan 1. Follow up with your primary care physician in 1 week 2. Follow up with a surgeon of your choice to address your acute cholecystitis. You can call Dr. Holliday's office or seek out a surgeon at [facility] as previously discussed 3. Take antibiotics for 7 days, Ciprofloxacin 500mg twice a day and Flagyl 500mg three times a day 4. Keep well hydrated and follow up your kidney function with your primary care physician 5. You will need to continue current diet to improve your triglycerides and control your blood sugars 6. Continue medications as prescribed 7. If your symptoms worsen, please return to the ED REFERRALS Other Referrals Angel Luis Holliday MD Specialty: General Surgery [address] [place] [address] [place] [id number] Office TAA FELIX MD Jan 19, 2017 08:34
--- NOTE | 2017-01-19 08:39 | PN ---
Date/Time of Note Date/Time of Note DATE: 01/19/17 TIME: 08:35 Assessment/Plan VTE Prophylaxis VTE Prophylaxis Intervention: SCD's Lines/Catheters IV Catheter Type (from [facility]): Peripheral IV Urinary Cath still in place: No Assessment/Plan Assessment/Plan 1. Acute cholecystitis- stable - Patient denies any abdominal pain and eating with no issues - Advised to follow up with a surgeon next week to schedule elective cholecystectomy - Continue on Cipro/Flagyl - Patient is afebrile with nl WBC and does not appear septic. - Pain control - Tolerating PO diet 2. UTI - UA + leuk esterase - Will treat with Cipro - Urine culture still pending but denies any symptoms 3. Early diverticulitis - Patient denies any symptoms - Continue to monitor - on antibiotics 4. SUMAN vs SUMAN on CKD -Advised to keep well hydrated and follow up with PCP to monitor renal function - May be secondary to infection vs dehydration - renal cysts present bilaterally on CT scan 5. CAD - continue on Aspirin, BB, and statin - stable 6. HTN - hold Benicar due SUMAN 7. h/o Bladder CA - per patient, he has been cancer free and finished chemotherapy 8. ?pancreatic abnormality - patient has appointment at [facility] on friday for MRI to further evaluate 9. HyperTG - patient states 8 months ago his TG were 3000. Advised proper diet and continue on Lipitor 10. Disposition - Medically stable for discharge home Subjective 24 Hr Interval Summary Free Text/Dictation Patient doing well and states he was experiencing a headache last night that has since resolved. Tolerating PO diet and no complaints of abdominal pain. No acute overnight events. Exam/Review of Systems Vital Signs Vitals Vital Signs Date Time Temp Pulse Resp B/P Pulse Ox O2 Delivery O2 Flow Rate FiO2 01/19/17 07:50 97.8 75 16 129/68 96 01/19/17 02:00 Room Air Intake and Output 01/18/17 01/18/17 01/19/17 14:59 22:59 06:59 Intake Total 400 ml 1280 ml 1750 ml Output Total 1000 ml Balance 400 ml 1280 ml 750 ml Exam General: NAD, awake and alert. answering questions appropriately HEENT: NC/AT. PERRL, supple CVS: S1, S2 RRR, no murmurs appreciated Lungs: CTA b/l. no wheezes or rhonchi Abd: soft, protuberant, nontender to palpation, no rebound or guarding Ext: no edema, cyanosis, or clubbing. moving all extremities skin: no new rashes Results Result Diagram: 01/19/1751101/19/17511 Results 24 hrs Laboratory Tests Test 01/18/17 09:43 01/18/17 14:26 01/19/17 05:12 Bedside Glucose 185 236 H White Blood Count 6.1 # Red Blood Count 4.39 L Hemoglobin 12.7 L Hematocrit 37.4 L Mean Corpuscular Volume 85.2 Mean Corpuscular Hemoglobin 28.9 L Mean Corpuscular Hemoglobin Concent 34.0 Red Cell Distribution Width 13.7 Platelet Count 138 #L Mean Platelet Volume 11.0 H Neutrophils % 46.9 Lymphocytes % 39.9 Monocytes % 10.8 Eosinophils % 1.3 Basophils % 0.8 Nucleated Red Blood Cells % 0.0 Neutrophils # 2.9 Lymphocytes # 2.4 Monocytes # 0.7 Eosinophils # 0.1 Basophils # 0.1 Nucleated Red Blood Cells # 0.0 Sodium Level 140 Potassium Level 3.9 Chloride Level 111 H Carbon Dioxide Level 20 L Anion Gap 13 Blood Urea Nitrogen 26 H Creatinine 1.48 H Glucose Level 142 # Hemoglobin A1c 8.0 H Calcium Level 8.7 Total Bilirubin 0.2 Direct Bilirubin 0.00 Indirect Bilirubin 0.2 Aspartate Amino Transf (AST/SGOT) 15 Alanine Aminotransferase (ALT/SGPT) 37 Alkaline Phosphatase 46 Total Protein 6.8 # Albumin 3.6 # Globulin 3.20 Albumin/Globulin Ratio 1.12 Triglycerides Level 971 H Cholesterol Level 194 LDL Cholesterol, Calculated HDL Cholesterol 35 Cholesterol/HDL Ratio 5.5 Thyroid Stimulating Hormone (TSH) 0.844 Medications Medications Current Medications Sodium Chloride (NS) 1,000 ml @ 100 mls/hr Q10H IV Last administered on t 08:14; Admin Dose 100 MLS/HR; Start 01/18/17 at 06:31 Ondansetron HCl (Zofran Inj) 4 mg Q6H PRN IV NAUSEA AND/OR VOMITING; Start 01/18/17 at 07:00 Acetaminophen (Tylenol Tab) 650 mg Q6H PRN PO PAIN LEVEL 1-3 OR FEVER; Start 01/18/17 at 07:00 Hydromorphone HCl (Dilaudid) 0.5 mg Q4H PRN IV SEVERE PAIN LEVEL 7-10; Start 01/18/17 at 07:00 Miscellaneous Information 1 ea 1 ea NOTE XX ; Start 01/18/17 at 07:00 Ciprofloxacin/ Dextrose 200 ml @ 200 mls/hr Q12 IVPB Last administered on 01/19 08:12; Admin Dose 200 MLS/HR; Start 01/18/17 at 09:00 Metronidazole (Flagyl 500 Mg (Pmx)) 100 ml @ 100 mls/hr Q6 IVPB Last administered on 01/19/17 05:36; Admin Dose 100 MLS/HR; Start 01/18/17 at 09:00 Acetaminophen/ Hydrocodone Bitart ([place] (5/325)) 1 tab Q4H PRN PO PAIN LEVEL 4 -6; Start 01/18/17 at 09:30 Aspirin (Aspirin) 81 mg DAILY PO Last administered on 01/19/17 08:08; Admin Dose 81 MG; Start 01/18/17 at 09:30 Atorvastatin Calcium (Lipitor) 80 mg HS PO Last administered on 01/18/17 20:53 ; Admin Dose 80 MG; Start 01/18/17 at 21:00 Carvedilol (Coreg) 6.25 mg BID PO Last administered on 01/19/17 08:08; Admin Dose 6.25 MG; Start 01/18/17 at 09:30 Miscellaneous Information Patients own medicat... BID@ XX ; Start 01/19/17 at 10:00 ATA FELIX MD Jan 19, 2017 08:39
--- NOTE | 2017-01-19 08:40 | DS ---
Date/Time of Note Date/Time of Note DATE: 01/19/17 TIME: 08:39 Discharge Summary Admission/Discharge Info Admit Date/Time Jan 18, 2017 at 06:26 Discharge Date/Time Discharge Diagnosis 1. Acute cholecystitis 2. Hypertriglyceridemia 3. Diabetes Mellitus, A1c 8.0 4. h/o Bladder CA 5. Urinary tract infection 6. Early diverticulitis 7. Acute renal insufficiency Patient Condition: Fair Procedures PROCEDURE: Abdominal ultrasound FINDINGS: Liver Length: 19.9 cm. Parenchyma: Heterogeneous. No suspicious mass or cyst. Portal vein: Patent with normal hepatopetal flow. Biliary tree Gallbladder: Distended containing a 1.6 gallstone located in the neck . The gallbladder wall is thickened measuring 5.8 mm with pericholecystic fluid. Positive King's sign was elicited by the rotor winder. Intrahepatic bile duct: No intrahepatic biliary ductal dilatation. Common bile duct: 5.5 mm. Pancreas: 1.5 x 0.9 cm round hypoechoic area near the pancreatic body not confirmed on CT examination of reference which was performed without intravenous contrast. Right kidney Length: 11.1 cm. Parenchyma: No evidence of obstructive uropathy. Multiple right renal cysts the largest measuring 2.9 x 1.2 cm. IMPRESSION: 1. Distended gallbladder with a 1.6 cm gallstone located in the gallbladder neck. There is gallbladder wall thickening and pericholecystic fluid. A positive King's sign elicited by the rotor winder. These findings are consistent with cholecystitis. 2. Hepatomegaly with heterogeneous echotexture favored to represent hepatic steatosis. 3. Rounded avascular hypoechoic structure adjacent to the body of the pancreas measuring 1.5 x 0.9 cm. Findings are not confirmed on CT examination of reference which was performed without intravenous contrast. Non emergent follow- up CT or MRI examination with special attention to the pancreas recommended. 4. Multiple right renal cysts the largest measuring 2.9 x 1.2 cm. PROCEDURE: CT of the abdomen and pelvis without contrast FINDINGS: Lack of oral and intravenous contrast somewhat limits evaluation. The lung bases are clear. No pleural effusion is seen. The liver is enlarged and normal in attenuation. The gallbladder is distended with a 1.9 cm gallstone in the neck. Gallbladder wall is thickened. No inflammatory changes are seen. There is no biliary ductal dilatation. The spleen , adrenal glands and pancreas are normal in appearance. The kidneys are normal in size. There are bilateral renal cysts, the largest measuring 4.6 cm in the lower pole of the left kidney. Small hyperdense lesions are seen on image 63 in the right kidney and 82-83 in the left kidney. There is a 6 mm calculus in the lower pole of the left kidney. No hydronephrosis is seen. The aorta is calcified with mild focal bulges in the wall of the infrarenal aorta. No evidence of aneurysm. There is evidence of prior small bowel resection with focal dilatation at the anastomosis. There is no evidence for bowel obstruction, free air, or abscess. The appendix is normal in appearance. The colon is fecal filled. Fecal like material is seen in the ileum. There is colonic diverticulosis, thickening of the distal descending, sigmoid colon with mild pericolonic stranding. No adenopathy or ascites is seen. The bladder is irregular in contour with mild wall thickening. There is evidence of prior small bowel resection with focal dilatation at the anastomoses.. Question prior prostatectomy. There is a fat containing right inguinal hernia. The pars defect is noted at the L5-S1 level on the left. Bilateral sacroiliac joints are narrowed.. IMPRESSION: Cholelithiasis and gallbladder wall thickening suggesting cholecystitis. Correlate clinically. Colonic diverticulosis and possible mild diverticulitis. Fecal filled colon. Nonobstructing left renal calculus. Bilateral renal simple and complex renal cysts. Irregular bladder contour and bladder wall thickening. Fat containing right inguinal hernia. PROCEDURE: XR Chest. CLINICAL INDICATION: Preoperative TECHNIQUE: Single frontal view of the chest was obtained. FINDINGS: The heart is within normal limits. The thoracic aorta is calcified. The lungs are clear. There is no pleural effusion or pneumothorax. IMPRESSION: No acute disease. Calcified aorta consistent with atherosclerotic disease. Hx of Present Illness 66 yo M with PMH CAD s/p stent, CAD, bladder CA 2010, and CKD presented to ED c/ o RUQ pain that started at 9pm. Patient states he was experiencing sharp pain, moderate in severity, nonradiating, nothing made it better, worse with movement. Patient admits to associated nausea but no vomiting. Denies any fevers, chills, LOC, dizziness, chest pain, shortness of breath, constipation, or diarrhea. Surgery was consulted by ED but patient has refused surgery at this time and would like to pursue as an outpatient. Patient has history of bladder cancer and had reconstruction of bladder. States he was told he will always have mucous present on urinalysis but denies any dysuria, blood, or discharge. Patient was told he has some abnormality in his pancreas and scheduled for appointment at [facility] on 01/20/11 for MRI. Patient plans to pursue treatment for acute cholecystitis as outpatient. Patient also states he used to be on medications for glucose control but was stopped due to abnormality found in pancreas. No longer taking insulin as well. Hospital Course Patient was admitted for acute cholecysitis, UTI, and early diverticulitis and started on IVF and IV antibioitcs. Pain had improved with pain control and patient was still adamant about not undergoing surgery since had a very important appointment at [facility] on january 20. Surgery had been called by the ED physician and call placed regarding patient not wanting any surgical intervention at this time. The surgeon instructed to give his number for when the patient decided to pursue surgical intervention. Patient also found to have early diverticulitis on CT scan. Patient was able to tolerated PO diet, WBC remained normal, and was afebrile. Patient was observed overnight and there were no changes in his condition. He was given pain control and advised to follow up with his PCP and a surgeon to schedule an elective cholecystectomy. Patient was discharged with 7 days of PO antibiotics for early diverticulitis in stable condition. Home Meds Active Scripts Hydrocodone/Acetaminophen ([place] 10-325 Tablet) 1 Each Tablet, 1 EACH PO Q6 for 10 Days, #20 TAB Prov:ATA FELIX MD 01/19/17 Metronidazole* (Flagyl*) 500 Mg Tablet, 500 MG PO Q8 for 7 Days, #21 TAB Prov:ATA FELIX MD 01/19/17 Ciprofloxacin Hcl* (Ciprofloxacin Hcl*) 500 Mg Tablet, 500 MG PO BID for 7 Days , #14 TAB Prov:ATA FELIX MD 01/19/17 Carvedilol* (Carvedilol*) 6.25 Mg Tablet, 6.25 MG PO BID for 30 Days, TAB 2 Refills Prov:NEYMAR CARNEY 08/19/15 Atorvastatin* (Atorvastatin*) 80 Mg Tablet, 80 MG PO HS for 30 Days, TAB 2 Refills Prov:NEYMAR CARNEY 08/19/15 Aspirin (Aspirin) 81 Mg Chew, 81 MG PO DAILY for 30 Days, TAB 2 Refills Prov:NEYMAR CARNEY. 08/19/15 Reported Medications Glimepiride* (Glimepiride*) 4 Mg Tablet, 4 MG PO WITH BREAKFAST DINNE, TAB 01/18/17 Discontinued Reported Medications Olmesartan Medoxomil (Benicar) 20 Mg Tablet, 20 MG PO DAILY, #30 TAB 08/17/15 Discontinued Scripts Levofloxacin* (Levaquin*) 500 Mg Tablet, 500 MG PO DAILY for 7 Days, TAB Prov:PAULETTE ABDI MD 01/18/17 Levofloxacin* (Levaquin*) 750 Mg Tablet, 750 MG PO DAILY for 7 Days, TAB Prov:PAULETTE ABDI MD 01/18/17 Insulin Glargine* (Lantus*) 100 Unit/Ml Soln, 15 UNIT SC HS for 2 Days use for the next 2 days till you can restart your home metformin Prov:ROMMELNEYMAR Purvis 08/19/15 Clopidogrel Bisulfate (Clopidogrel) 75 Mg Tablet, 75 MG PO DAILY for 30 Days, TAB 2 Refills Prov:ROMMELNEYMAR 08/19/15 Follow-up Plan 1. Follow up with your primary care physician in 1 week 2. Follow up with a surgeon of your choice to address your acute cholecystitis. You can call Dr. Holliday's office or seek out a surgeon at [facility] as previously discussed 3. Take antibiotics for 7 days, Ciprofloxacin 500mg twice a day and Flagyl 500mg three times a day 4. Keep well hydrated and follow up your kidney function with your primary care physician 5. You will need to continue current diet to improve your triglycerides and control your blood sugars 6. Continue medications as prescribed 7. If your symptoms worsen, please return to the ED Primary Care Provider Not On Staff Doctor Time spent on discharge: > 30 minutes Pending Labs Laboratory Tests Test 01/18/17 09:43 01/18/17 14:26 01/19/17 05:12 Bedside Glucose 185mg/dL (70-220) 236mg/dL (70-220) White Blood Count 6.110^3/ul (4.8-10.8) Red Blood Count 4.3910^6/ul (4.70-6.10) Hemoglobin 12.7g/dl (14.0-18.0) Hematocrit 37.4% (42.0-52.0) Mean Corpuscular Volume 85.2fl (82.0-101.0) Mean Corpuscular Hemoglobin 28.9pg (29.0-33.0) Mean Corpuscular Hemoglobin Concent 34.0g/dl (32.0-37.0) Red Cell Distribution Width 13.7% (11.5-14.5) Platelet Count 77787^3/UL (140-415) Mean Platelet Volume 11.0fl (7.4-10.4) Neutrophils % 46.9% (39.0-77.0) Lymphocytes % 39.9% (15.0-51.0) Monocytes % 10.8% (0.0-11.0) Eosinophils % 1.3% (0.0-7.0) Basophils % 0.8% (0.0-2.0) Nucleated Red Blood Cells % 0.0/100WBC (0.0-0.0) Neutrophils # 2.910^3/ul (1.6-7.5) Lymphocytes # 2.410^3/ul (0.8-2.9) Monocytes # 0.710^3/ul (0.3-0.9) Eosinophils # 0.110^3/ul (0.0-0.5) Basophils # 0.110^3/ul (0.0-0.1) Nucleated Red Blood Cells # 0.010^3/ul (0.0-0.0) Sodium Level 140mmol/L (135-144) Potassium Level 3.9mmol/L (3.5-5.1) Chloride Level 111mmol/L (97-110) Carbon Dioxide Level 20mmol/L (21-31) Anion Gap 13 (8-16) Blood Urea Nitrogen 26mg/dl (7-20) Creatinine 1.48mg/dl (0.61-1.24) Glucose Level 142mg/dl (70-220) Hemoglobin A1c 8.0% (0-5.9) Calcium Level 8.7mg/dl (8.4-10.2) Total Bilirubin 0.2mg/dl (0.2-1.3) Direct Bilirubin 0.00mg/dl (0.00-0.20) Indirect Bilirubin 0.2mg/dl (0-1.1) Aspartate Amino Transf (AST/SGOT) 15IU/L (15-46) Alanine Aminotransferase (ALT/SGPT) 37IU/L (13-69) Alkaline Phosphatase 46IU/L (42-121) Total Protein 6.8g/dl (6.1-8.1) Albumin 3.6g/dl (3.3-4.9) Globulin 3.20g/dl (1.3-3.2) Albumin/Globulin Ratio 1.12 Triglycerides Level 971mg/dl (0-149) Cholesterol Level 194mg/dl (100-200) LDL Cholesterol, Calculated mg/dl HDL Cholesterol 35mg/dl (30-78) Cholesterol/HDL Ratio 5.5RATIO Thyroid Stimulating Hormone (TSH) 0.844MIU/L (0.465-4.680) ATA FELIX MD Jan 19, 2017 08:39
[2017-01-19] MEDS ORDERED: GLIMEPIRIDE 4 MG TAB PO SCH (09:00)
== END 2017-01-19 10:25 | disposition home or self-care (01) | DRG 445 ==
LOC: E/R 04:19 → MS2 06:26
PROVIDERS: ADMIT Family Medicine; ATTEND Family Medicine
DX: K80.00 Calculus of gallbladder with acute cholecystitis without obstruction (principal); N39.0 Urinary tract infection, site not specified; N17.9 Acute kidney failure, unspecified; E11.22 Type 2 diabetes mellitus with diabetic chronic kidney disease; E11.65 Type 2 diabetes mellitus with hyperglycemia; K57.92 Diverticulitis of intestine, part unspecified, without perforation or abscess without bleeding; I12.9 Hypertensive chronic kidney disease with stage 1 through stage 4 chronic kidney disease, or unspecified chronic kidney disease; N18.9 Chronic kidney disease, unspecified; I25.10 Atherosclerotic heart disease of native coronary artery without angina pectoris; Z95.5 Presence of coronary angioplasty implant and graft; Z85.51 Personal history of malignant neoplasm of bladder
CPT/HCPCS: 36415; 71010; 74176; 76705; 80053; 80061; 81003; 82962; 83036; 83690; 84443; 85025; 87086; 93005; 96374; 96375; J0744; J1815; J2270; J2405; J2543; J7030; J7040